=== PATIENT | female | born 1980 | race Caucasian/White ===

== ENCOUNTER 2017-07-22 08:54 | Emergency (ER) | payer OTHER ==
[2017-07-22 09:07] VITALS: BP 152/96
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
[2017-07-22] MEDS ORDERED: FLEXERIL PO ONE (13:06)
[2017-07-22] MEDS ORDERED: MOTRIN PO ONE (13:06)
== END 2017-07-22 13:20 | disposition home or self-care (01) ==
LOC: ED 08:54
DX: M79.1 Myalgia (principal); V49.49XA Driver injured in collision with other motor vehicles in traffic accident, initial encounter; Y93.9 Activity, unspecified; Y92.9 Unspecified place or not applicable; Y99.9 Unspecified external cause status
CPT/HCPCS: 99282

== ENCOUNTER 2019-03-21 19:47 | Emergency (ER) | payer OTHER ==
[2019-03-21] MEDS ORDERED: IBUPROFEN PO ONE ×2 (21:38→21:39)
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
[2019-03-22] MEDS ORDERED: TORADOL IM ONE (00:42)
[2019-03-22] MEDS ORDERED: FLEXERIL PO ONE (00:42)
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
[2019-03-22 02:12] VITALS: BP 160/89
== END 2019-03-22 02:14 | disposition home or self-care (01) ==
LOC: ED 19:47
DX: S16.1XXA Strain of muscle, fascia and tendon at neck level, initial encounter (principal); I10 Essential (primary) hypertension; F17.200 Nicotine dependence, unspecified, uncomplicated; V89.2XXA Person injured in unspecified motor-vehicle accident, traffic, initial encounter; Y93.89 Activity, other specified; Y92.488 Other paved roadways as the place of occurrence of the external cause; Y99.8 Other external cause status
CPT/HCPCS: 72040; 72100; 73030; 96372; 99283; J1885